=== PATIENT | male | born 1945 | race Caucasian/White ===

== ENCOUNTER 2024-04-26 17:37 | Inpatient (IN) ==
--- NOTE | 2024-04-26 18:45 | DR.DIZZY ---
HPI Time seen Time Seen by Provider: 04/26/24 18:44 PCP Primary Care Physician: Ivette Al HPI Comment HPI Comment: Patient's family states that his family has had flu for the past few weeks and today he woke up feeling a little weak with some upper respiratory type symptoms. Denies fever chills, nausea or vomiting. Patient's family stated that he had 1 episode of diarrhea today and was unable to make it to the bathroom. Complaint Chief Complaint:: Pt states his family has all had the flu the past few weeks and today he woke up feeling weak. Denies fever, chills, n/v. PT family states that pt had a BM on himself earlier today and that's unusual for him. Source History Provided: Patient and EMS Mode of Arrival Mode of Arrival: EMS Timing Onset of Chief Complaint: 04/26/24 Context Stroke Symptoms: None PMH PMH Past Medical History: Yes Past Medical History: Depression and Hypertension Past Surgical History: No Surgical History: Unknown Family History History of Family Medical Conditions: No (unknown) Social History Alcohol Use: None Do you use any recreational Drugs:: No Lives With: Family Lives Where: Home Infectious screening Have you traveled outside the country in the last 6 months?: No Isolation: Droplet ROS Review of Systems Constitutional: See HPI and Weakness; negative Fever Eyes: No Symptoms Reported ENTM: See HPI and Nose Discharge Respiratoy: No Symptoms Reported; negative Short of Breath Cardiovascular: No Symptoms Reported; negative Chest Pain, Edema, Palpitations or Syncope Gastrointestinal/Abdominal: See HPI and Diarrhea; negative Abdominal Pain, Constipation, Nausea or Vomiting Genitourinary: No Symptoms Reported Neurological: No Symptoms Reported Musculoskeletal: No Symptoms Reported Integumentary: No Symptoms Reported Hematologic/Lymphatic: No Symptoms Reported Endocrine: No Symptoms Reported Psychiatric: No Symptoms Reported All Other Systems: Reviewed and Negative PE Vital Signs Vitals: Vital Signs Temperature 98.7 F Pulse Rate 68 Pulse Rate 71 Pulse Rate 78 Pulse Rate 72 Pulse Rate 68 Pulse Rate 75 Pulse Rate 75 Pulse Rate 70 Pulse Rate 75 Pulse Rate 82 Pulse Rate 80 Pulse Rate 87 Pulse Rate 79 Pulse Rate 81 Respiratory Rate 21 Respiratory Rate 22 Respiratory Rate 22 Respiratory Rate 23 Respiratory Rate 20 Respiratory Rate 21 Respiratory Rate 21 Respiratory Rate 25 Respiratory Rate 18 Respiratory Rate 18 Blood Pressure 158/64 Blood Pressure 180/83 Blood Pressure 173/77 Blood Pressure 161/77 Blood Pressure 161/77 Blood Pressure 116/60 Blood Pressure 119/67 Blood Pressure 125/59 Blood Pressure 125/59 O2 Sat by Pulse Oximetry 95 O2 Sat by Pulse Oximetry 95 O2 Sat by Pulse Oximetry 98 O2 Sat by Pulse Oximetry 96 O2 Sat by Pulse Oximetry 97 O2 Sat by Pulse Oximetry 95 O2 Sat by Pulse Oximetry 94 O2 Sat by Pulse Oximetry 97 O2 Sat by Pulse Oximetry 99 O2 Sat by Pulse Oximetry 97 O2 Sat by Pulse Oximetry 97 O2 Sat by Pulse Oximetry 98 O2 Sat by Pulse Oximetry 95 O2 Sat by Pulse Oximetry 99 O2 Sat by Pulse Oximetry 97 General Limitations: No Limitations General Appearance: Alert (Pleasantly demented) and In No Apparent Distress Head Head Exam: Normal Inspection Eyes Eye exam: Normal Appearance ENT ENT Exam: Normal Exam, Normal Oropharynx and Normal External Ear Exam Neck Neck Exam: Normal Inspection and Full ROM Chest Chest Inspection: Normal Inspection Respiratory Respiratory Exam: Normal Lung Sounds Bilat Cardiovascular Cardiovascular Exam: Regular Rate and Normal Rhythm Abdominal Exam Abdominal Exam: Normal Inspection, Normal Bowel Sounds and Soft Rectal Rectal Exam: Deferred Extremeties Extremities Exam: Normal Inspection and Full ROM Back Back Exam: Normal Inspection and Full ROM Neurologic Neurological Exam: Alert, CN II-XII Intact, Reflexes Normal and Other (No focal deficits); negative Motor Sensory Deficit Psychiatric Psychiatric Exam: Normal Affect and Normal Mood Skin Skin Exam: Warm, Dry, Intact and Normal Color COURSE Treatment Treatment: Patient swabs came back negative. On discussion with patient and fam gisselle member she states that he has actually been weak for a month and that he became weaker since yesterday. That he is having a difficulty getting around. Denies focal deficits. States that he has baseline dementia but that this is a change in his mental status. CT abdomen shows a distended urinary bladder likely secondary to bladder outlet obstruction secondary to benign prostatic hyperplasia. Patient has UTI on UA which is likely source of elevated white count. This is likely the source of the altered mental status worsening dementia status. Consultation Called: 23:02 Consultation Comments: Discussed case with Dr. Alonso and he is agreeable to admission. ROR Labs Reviewed 04/26/24 19:12 04/26/24 19:12 Laboratory: WBC 26.3 X10^3/uL (3.6-10.0) H 04/26/24 19:12 RBC 4.15 X10^6/uL (4.7-6.0) L 04/26/24 19:12 Hgb 13.3 g/dL (13.5-18.0) L 04/26/24 19:12 Hct 38.8 % (42.0-54.0) L 04/26/24 19:12 MCV 93.4 fL (80.0-100.0) 04/26/24 19:12 MCH 32.0 pg (27.0-34.0) 04/26/24 19:12 MCHC 34.3 g/dL (33.0-35.0) 04/26/24 19:12 RDW 13.4 % (11.6-16.5) 04/26/24 19:12 Plt Count 110 X10^3/uL (150.0-450.0) L 04/26/24 19:12 Plt Count Comment Decreased (ADEQUATE) 04/26/24 19:12 MPV 10.7 fL (7.4-11.0) 04/26/24 19:12 Neut % (Auto) 90.8 % (42.0-75.0) H 04/26/24 19:12 Lymph % (Auto) 1.4 % (21.0-51.0) L 04/26/24 19:12 Ray % (Auto) 7.6 % (0.0-13.0) 04/26/24 19:12 Eos % (Auto) 0.0 % (0.9-2.9) L 04/26/24 19:12 Baso % (Auto) 0.2 % (0.2-1.0) 04/26/24 19:12 Neut # (Auto) 23.8 x10^3/uL (2.2-4.8) H 04/26/24 19:12 Lymph # (Auto) 0.4 X10^3/uL (1.3-2.9) L 04/26/24 19:12 Ray # (Auto) 2.0 x10^3/uL (0.3-0.8) H 04/26/24 19:12 Eos # (Auto) 0.0 x10^3/uL (0.0-0.2) 04/26/24 19:12 Baso # (Auto) 0.1 X10^3/uL (0.0-0.1) 04/26/24 19:12 Absolute Nucleated RBC 0.2 /100WBC 04/26/24 19:12 Total Counted 100 04/26/24 19:12 Neutrophils % (Manual) 91 % (39-76) H 04/26/24 19:12 Band Neutrophils % 4 % (0-10) 04/26/24 19:12 Lymphocytes % (Manual) 2 % (13-43) L 04/26/24 19:12 Monocytes % (Manual) 3 % (4-9) L 04/26/24 19:12 Plt Morphology Comment Normal (NORMAL) 04/26/24 19:12 RBC Morphology Normal (NORMAL) 04/26/24 19:12 Sodium 137 mmol/L (136-145) 04/26/24 19:12 Corrected Sodium 143 mmol/L (136-145) 04/26/24 19:12 Potassium 4.4 mmol/L (3.5-5.1) 04/26/24 19:12 Chloride 100 mmol/L (98-107) 04/26/24 19:12 Carbon Dioxide 26.4 mmol/L (21-32) 04/26/24 19:12 BUN 37 mg/dL (7-18) H 04/26/24 19:12 Creatinine 1.73 mg/dL (0.70-1.30) H 04/26/24 19:12 Est GFR (MDRD) Af Amer 49 (>60) L 04/26/24 19:12 Est GFR (MDRD) Non-Af 41 (>60) L 04/26/24 19:12 Glucose 347 mg/dL (65-99) H 04/26/24 19:12 Calcium 8.7 mg/dL (8.5-10.1) 04/26/24 19:12 Corrected Calcium 9.3 mg/dL (8.5-10.1) 04/26/24 19:12 Total Bilirubin 1.40 mg/dL (0.2-1.0) H 04/26/24 19:12 AST 39 Units/L (15-37) H 04/26/24 19:12 ALT 36 Units/L (12-78) 04/26/24 19:12 Alkaline Phosphatase 88 Units/L (46-116) 04/26/24 19:12 Total Protein 6.4 g/dL (6.4-8.2) 04/26/24 19:12 Albumin 3.2 g/dL (3.4-5.0) L 04/26/24 19:12 Globulin 3.2 g/dL (2.5-4.5) 04/26/24 19:12 Albumin/Globulin Ratio 1.0 Ratio (1.1-2.1) L 04/26/24 19:12 Specimen Type Catherized urine 04/26/24 21:54 Urine Color Pale yellow (YELLOW) 04/26/24 21:54 Urine Appearance Cloudy (CLEAR) 04/26/24 21:54 Urine pH 5.0 (5.0 - 8.0) 04/26/24 21:54 Ur Specific [place] 1.015 (1.000-1.030) 04/26/24 21:54 Urine Protein 2+ (NEGATIVE) 04/26/24 21:54 Urine Glucose (UA) 4+ (NEGATIVE) 04/26/24 21:54 Urine Ketones 1+ (NEGATIVE) 04/26/24 21:54 Urine Blood 4+ (NEGATIVE) 04/26/24 21:54 Urine Nitrite Positive (NEGATIVE) 04/26/24 21:54 Urine Bilirubin Negative (NEGATIVE) 04/26/24 21:54 Urine Urobilinogen Normal (NORMAL) 04/26/24 21:54 Ur Leukocyte Esterase 3+ (NEGATIVE) 04/26/24 21:54 Urine RBC 5-10 /HPF (0-3) A 04/26/24 21:54 Urine WBC Tntc /HPF (0-5) A 04/26/24 21:54 Ur Squamous Epith Cells Rare /HPF (NEGATIVE) 04/26/24 21:54 Urine Bacteria 3+ /HPF (NEGATIVE) 04/26/24 21:54 Ur Culture Indicated? Yes/culture set up 04/26/24 21:54 SARS-CoV-2 (PCR) Negative (NEGATIVE) 04/26/24 17:50 Influenza Type A (PCR) Negative (NEGATIVE) 04/26/24 17:50 Influenza Type B (PCR) Negative (NEGATIVE) 04/26/24 17:50 RSV (PCR) Negative (NEGATIVE) 04/26/24 17:50 Opioid Opioid Risk Tool Total: 0 Total Score Risk Category: Low Risk Copyright: Jordy WONG predicting aberrant behaviors Discharge Plan Diagnosis Discharge Problem: Acute UTI, AMS (altered mental status), BPH with urinary obstruction, Dementia, HTN (hypertension), HLD (hyperlipidemia), Diabetes mellitus Discharge Plan Patient Disposition: 09 ADMITTED INPATIENT Condition: Stable Prescriptions: No Action atorvastatin 80 mg Tablet 80 mg PO DAILY donepezil 10 mg Tablet 10 mg PO QHS aspirin [Aspir-81] 81 mg Tablet,Delayed Release (Dr/Ec) 81 mg PO DAILY levothyroxine 100 mcg Tablet 100 mcg PO DAILY tamsulosin 0.4 mg Capsule 0.4 mg PO DAILY montelukast 10 mg Tablet 10 mg PO DAILY gabapentin 300 mg Tablet 300 mg PO BID Health Concerns: Post Hospitalization: new medications and changes needed to prevent readmission or further decline. Pt educated and given instructions on all concerns. Plan of Treatment: Continue with present treatment and follow up plan. Pt is to keep follow up appointment as instructed and take medications as ordered. Orders to Discharge Patient Discharge Orders: Transfer (Routine); Ordered 04/26/24 Ordered By: Marino Carson Follow ups/Referrals Follow ups/Referrals: ALYSON AL [Primary Care Provider] - 3 days Instructions Stand Alone Forms: Find Help Web Site, Post Hospital Follow Up Care
[2024-04-26 19:22] LABS: RED CELL DISTRIBUTION WIDTH 13.4 % (11.6-16.5)
[2024-04-26 19:26] LABS: BASOPHILS # (AUTO) 0.1 X10^3/uL (0.0-0.1); BASOPHILS % (AUTO) 0.2 % (0.2-1.0); HEMATOCRIT 38.8 % (42.0-54.0); HEMOGLOBIN 13.3 g/dL (13.5-18.0); LYMPHOCYTES # (AUTO) 0.4 X10^3/uL (1.3-2.9); LYMPHOCYTES % (AUTO) 1.4 % (21.0-51.0); MEAN CORPUSCULAR HGB CONC 34.3 g/dL (33.0-35.0); MEAN CORPUSCULAR VOLUME 93.4 fL (80.0-100.0); MEAN PLATELET VOLUME 10.7 fL (7.4-11.0); MONOCYTES % (AUTO) 7.6 % (0.0-13.0); NEUTROPHILS # (AUTO) 23.8 x10^3/uL (2.2-4.8); NEUTROPHILS % (AUTO) 90.8 % (42.0-75.0); PLATELET COUNT 110 X10^3/uL (150.0-450.0); RED BLOOD COUNT 4.15 X10^6/uL (4.7-6.0); WHITE BLOOD COUNT 26.3 X10^3/uL (3.6-10.0)
[2024-04-26 19:35] LABS: ALBUMIN 3.2 g/dL (3.4-5.0); CALCIUM 8.7 mg/dL (8.5-10.1); CARBON DIOXIDE 26.4 mmol/L (21-32); COR CA(FOR HYPOALB) 9.3 mg/dL (8.5-10.1); CREATININE 1.73 mg/dL (0.70-1.30); POTASSIUM 4.4 mmol/L (3.5-5.1); TOTAL PROTEIN 6.4 g/dL (6.4-8.2)
[2024-04-26 19:50] LABS: BAND NEUTROPHILS % 4 % (0-10); PLATELET MORPHOLOGY COMMENT NORMAL (NORMAL)
[2024-04-26] MEDS: ATIVAN INJ 2 MG VIAL IVP ONE ×2 (20:29→22:05)
--- NOTE | 2024-04-26 22:02 | CT ---
EXAM:BRAIN W/O CONHISTORY:Pt states his family has all had the flu the past few weeks and today he woke up feeling weak. ;COMPARISON:Report only from an MRI brain study on December 19, [address] head without contrast from June 16, 2022.TECHNIQUE:Axial non-contrast images of the head were obtained with coronal and sagittal reformats provided.Radiation dose: 959.64 mGy-cm total DLPFINDINGS:No abnormal areas of acute attenuation in the brain parenchyma.Emanuel-white differentiation remains intact.No intracranial, extra-axial, fluid collection.No hemorrhage.Periventricular chronic microvascular disease.No mass, mass effect or midline shift.Age related brain parenchymal global atrophy.No ventriculomegaly.No acute fracture.Sinuses are well aerated.Mastoid air cells are well aerated.Globes and intra-orbital contents are unremarkable.IMPRESSION:No acute intracranial abnormality identified.THIS IS AN ELECTRONICALLY VERIFIED FINAL REPORT04/26/2024 9:59 PM - Electronically signed by Rohan Morgan MD
--- NOTE | 2024-04-26 22:05 | CT ---
EXAM:ABDOMEN/PELVIS W/O CONHISTORY:Diarrhea, Abd pain;COMPARISON:None.TECHNIQUE:Nonenhanc ed spiral CT imaging was performed through the abdomen and pelvis and axial, coronal, and sagittal CT images were generated.FINDINGS:There is mild dependent atelectasis without effusion. The heart size is within normal limits. There is multivessel coronary atherosclerosis. The liver, gallbladder are normal. Pancreas is atrophic. The spleen and adrenal glands are normal. Both kidneys are normal in size. There is a 3 mm nonobstructing stone in the left kidney. There is no stone in the right kidney. There is dilation of both ureters likely due to the extremely dilated urinary bladder. The stomach and small bowel are unremarkable. There is no evidence for appendicitis. There is stool throughout the colon and constipation may be present. There is uyxntlis-cx-pyfgsd systemic atherosclerosis. There is degeneration of the spine and in the hips there is no worrisome bone marrow lesion.IMPRESSION:1. Massively distended urinary bladder likely due to outlet obstruction.2. Small nonobstructing stone in the left kidney. No ureteral stone.3. Question constipation.THIS IS AN ELECTRONICALLY VERIFIED FINAL REPORT04/26/2024 10:01 PM - Electronically signed by Sunny Renee MD
[2024-04-26 22:18] LABS: BILIRUBIN,URINE NEGATIVE (NEGATIVE); BLOOD/HEMOGLOBIN,URINE 4+ (NEGATIVE); GLUCOSE, URINE 4+ (NEGATIVE); KETONES,URINE 1+ (NEGATIVE); LEUKOCYTE ESTERASE ,URINE 3+ (NEGATIVE); NITRITES,URINE POSITIVE (NEGATIVE); PROTEIN,URINE 2+ (NEGATIVE); UROBILINOGEN,URINE NORMAL (NORMAL)
[2024-04-26 22:27] LABS: APPEARANCE,URINE CLOUDY (CLEAR); BACTERIA,URINE 3+ /HPF (NEGATIVE); COLOR,URINE PALE YELLOW (YELLOW); SQUAMOUS EPITHELIAL CELL,UR RARE /HPF (NEGATIVE)
[2024-04-26] MEDS ORDERED: NS 1,000 ML IV 1,000 ML ONE (23:03)
[2024-04-26] MEDS: NS 1,000 ML IV 1,000 ML IV SCH (23:10)
[2024-04-26] MEDS: CIPRO IV 400 MG PREMIX* 400 MG/200 ML IV.SOLN. IV SCH (23:10)
[2024-04-27] MEDS ORDERED: CONSULT PHARMACY - POTASSIUM & MAGNESIUM XX SCH (00:06)
[2024-04-27 00:26] VITALS: BMI 24.0
[2024-04-27] MEDS: FLOMAX PO SCH (00:47)
[2024-04-27] MEDS: NS 1,000 ML IV 1,000 ML IV SCH (00:47)
[2024-04-27] MEDS ORDERED: ULTRAM PO PRN (01:51)
[2024-04-27] MEDS: VALIUM INJ IVP PRN (02:06)
[2024-04-27 04:58] LABS: BASOPHILS % (AUTO) 0.1 % (0.2-1.0); HEMATOCRIT 37.4 % (42.0-54.0); HEMOGLOBIN 12.7 g/dL (13.5-18.0); LYMPHOCYTES # (AUTO) 0.8 X10^3/uL (1.3-2.9); LYMPHOCYTES % (AUTO) 3.3 % (21.0-51.0); MEAN CORPUSCULAR HEMOGLOBIN 31.6 pg (27.0-34.0); MEAN CORPUSCULAR HGB CONC 33.9 g/dL (33.0-35.0); MEAN CORPUSCULAR VOLUME 93.2 fL (80.0-100.0); MEAN PLATELET VOLUME 11.5 fL (7.4-11.0); MONOCYTES # (AUTO) 2.3 x10^3/uL (0.3-0.8); MONOCYTES % (AUTO) 9.4 % (0.0-13.0); NEUTROPHILS # (AUTO) 21.4 x10^3/uL (2.2-4.8); NEUTROPHILS % (AUTO) 87.2 % (42.0-75.0); PLATELET COUNT 114 X10^3/uL (150.0-450.0); RED BLOOD COUNT 4.01 X10^6/uL (4.7-6.0); RED CELL DISTRIBUTION WIDTH 13.4 % (11.6-16.5); WHITE BLOOD COUNT 24.6 X10^3/uL (3.6-10.0)
[2024-04-27 05:19] LABS: BAND NEUTROPHILS % 8 % (0-10); PLATELET MORPHOLOGY COMMENT NORMAL (NORMAL)
[2024-04-27 05:25] LABS: ALBUMIN 3.2 g/dL (3.4-5.0); CALCIUM 8.6 mg/dL (8.5-10.1); COR CA(FOR HYPOALB) 9.2 mg/dL (8.5-10.1); CREATININE 1.52 mg/dL (0.70-1.30); POTASSIUM 4.3 mmol/L (3.5-5.1); TOTAL PROTEIN 6.3 g/dL (6.4-8.2)
[2024-04-27] MEDS: ATIVAN INJ 2 MG VIAL ONE (07:05)
[2024-04-27] MEDS ORDERED: FLOMAX PO SCH (09:00)
[2024-04-27] MEDS ORDERED: CIPRO IV 400 MG PREMIX* 400 MG/200 ML IV.SOLN. IV SCH (09:00)
--- NOTE | 2024-04-27 09:41 | RAD ---
EXAM:Portable AP chestHISTORY:AMS WBCCOMPARISON:06/16/2022FINDINGS:Heart size continues normal. There is slight interstitial prominence in the lungs probably related to incomplete inspiration. There is no definite consolidation, pneumonia, pneumothorax or pleural fluid.IMPRESSION:Considering mild pulmonary hypoinflation, no significant abnormality.THIS IS AN ELECTRONICALLY VERIFIED FINAL REPORT04/27/2024 9:37 AM - Electronically signed by Dhaval Hooker MD
[2024-04-27] MEDS: ASPIRIN EC 81 MG PO SCH (13:36)
[2024-04-27] MEDS ORDERED: TYLENOL 325 MG TAB PO PRN (14:20)
--- NOTE | 2024-04-27 15:15 | DR.H&P ---
H&P History & Physical for Day of: H&P Date: 04/27/24 Chief Complaint Chief Complaint: weakness History of Present Illness History of Present Illness: Patient brought to the ER by family due to worsening mental status, fatigue, and function. Patient had been dealing with "the flu" for the last couple of weeks when he acutely worsened over the last 48 hours. In the ER he was found to have bladder outlet obstruction, likely secondary to BPH, with ELIZABETH and leukocytosis. Flowers was placed and IV fluids and IV antibiotics started. Patient has some improvement to his vitals and labs with those interventions. Family reports his mental status is still very confused but he does have baseline dementia. This does not appear to be his baseline though. He has not seen urology in the past but has been taking Flomax. He did report some pelvic discomfort with sitting down the last couple of weeks. ROS: 12 point ROS otherwise negative. Family and nurse at bedside for exam. PE: Elderly, thin male in no acute distress. Hearing intact conversation. Head NCAT. Neck full range of motion. Heart regular rate and rhythm. Lungs are clear bilaterally. Belly is soft, nontender, nondistended. Flowers with dark output. Cognition is slowed and abnormal. Past Medical History Past Medical History: Depression and Hypertension Past Surgical History Surgical History: Unknown Family History Family Medical History: Diabetes Mellitus, Sudden Cardiac and Hypertension Social History Does patient currently use any type of tobacco product: Yes Type of Tobacco Use: Smokeless Does any household member use tobacco: No Alcohol Use: None Drug Use: None Medications Home Medications: Home Medications Medication Instructions Recorded Confirmed Type aspirin 81 mg tablet,delayed 81 mg PO DAILY 04/26/24 04/26/24 History release atorvastatin 80 mg tablet 80 mg PO DAILY 04/26/24 04/26/24 History donepezil 10 mg tablet 10 mg PO QHS 04/26/24 04/26/24 History gabapentin 300 mg tablet 300 mg PO BID 04/26/24 04/26/24 History levothyroxine 100 mcg tablet 100 mcg PO DAILY 04/26/24 04/26/24 History montelukast 10 mg tablet 10 mg PO DAILY 04/26/24 04/26/24 History tamsulosin 0.4 mg capsule 0.4 mg PO DAILY 04/26/24 04/26/24 History Allergies Allergies Allergy/AdvReac Type Severity Reaction Status Date / Time No Known Allergies Allergy Verified 04/26/24 17:46 Labs 04/27/24 04:02 04/27/24 04:02 Labs: Laboratory WBC 24.6 X10^3/uL (3.6-10.0) H 04/27/24 04:02 RBC 4.01 X10^6/uL (4.7-6.0) L 04/27/24 04:02 Hgb 12.7 g/dL (13.5-18.0) L 04/27/24 04:02 Hct 37.4 % (42.0-54.0) L 04/27/24 04:02 MCV 93.2 fL (80.0-100.0) 04/27/24 04:02 MCH 31.6 pg (27.0-34.0) 04/27/24 04:02 MCHC 33.9 g/dL (33.0-35.0) 04/27/24 04:02 RDW 13.4 % (11.6-16.5) 04/27/24 04:02 Plt Count 114 X10^3/uL (150.0-450.0) L 04/27/24 04:02 Plt Count Comment Decreased (ADEQUATE) 04/27/24 04:02 MPV 11.5 fL (7.4-11.0) H 04/27/24 04:02 Neut % (Auto) 87.2 % (42.0-75.0) H 04/27/24 04:02 Lymph % (Auto) 3.3 % (21.0-51.0) L 04/27/24 04:02 [place] % (Auto) 9.4 % (0.0-13.0) 04/27/24 04:02 Eos % (Auto) 0.0 % (0.9-2.9) L 04/27/24 04:02 Baso % (Auto) 0.1 % (0.2-1.0) L 04/27/24 04:02 Neut # (Auto) 21.4 x10^3/uL (2.2-4.8) H 04/27/24 04:02 Lymph # (Auto) 0.8 X10^3/uL (1.3-2.9) L 04/27/24 04:02 [place] # (Auto) 2.3 x10^3/uL (0.3-0.8) H 04/27/24 04:02 Eos # (Auto) 0.0 x10^3/uL (0.0-0.2) 04/27/24 04:02 Baso # (Auto) 0.0 X10^3/uL (0.0-0.1) 04/27/24 04:02 Absolute Nucleated RBC 0.0 /100WBC 04/27/24 04:02 Total Counted 100 04/27/24 04:02 Neutrophils % (Manual) 81 % (39-76) H 04/27/24 04:02 Band Neutrophils % 8 % (0-10) 04/27/24 04:02 Lymphocytes % (Manual) 4 % (13-43) L 04/27/24 04:02 Monocytes % (Manual) 7 % (4-9) 04/27/24 04:02 Plt Morphology Comment Normal (NORMAL) 04/27/24 04:02 RBC Morphology Normal (NORMAL) 04/27/24 04:02 Sodium 141 mmol/L (136-145) 04/27/24 04:02 Corrected Sodium 145 mmol/L (136-145) 04/27/24 04:02 Potassium 4.3 mmol/L (3.5-5.1) 04/27/24 04:02 Chloride 103 mmol/L (98-107) 04/27/24 04:02 Carbon Dioxide 29.0 mmol/L (21-32) 04/27/24 04:02 BUN 40 mg/dL (7-18) H 04/27/24 04:02 Creatinine 1.52 mg/dL (0.70-1.30) H 04/27/24 04:02 Est GFR (MDRD) Af Amer 57 (>60) L 04/27/24 04:02 Est GFR (MDRD) Non-Af 47 (>60) L 04/27/24 04:02 Glucose 261 mg/dL (65-99) H 04/27/24 04:02 POC Glucose (mg/dL) 200 mg/dL (65-99) H 04/27/24 10:33 Calcium 8.6 mg/dL (8.5-10.1) 04/27/24 04:02 Corrected Calcium 9.2 mg/dL (8.5-10.1) 04/27/24 04:02 Total Bilirubin 1.40 mg/dL (0.2-1.0) H 04/27/24 04:02 AST 38 Units/L (15-37) H 04/27/24 04:02 ALT 33 Units/L (12-78) 04/27/24 04:02 Alkaline Phosphatase 84 Units/L (46-116) 04/27/24 04:02 Total Protein 6.3 g/dL (6.4-8.2) L 04/27/24 04:02 Albumin 3.2 g/dL (3.4-5.0) L 04/27/24 04:02 Globulin 3.1 g/dL (2.5-4.5) 04/27/24 04:02 Albumin/Globulin Ratio 1.0 Ratio (1.1-2.1) L 04/27/24 04:02 Specimen Type Catherized urine 04/26/24 21:54 Urine Color Pale yellow (YELLOW) 04/26/24 21:54 Urine Appearance Cloudy (CLEAR) 04/26/24 21:54 Urine pH 5.0 (5.0 - 8.0) 04/26/24 21:54 Ur Specific [place] 1.015 (1.000-1.030) 04/26/24 21:54 Urine Protein 2+ (NEGATIVE) 04/26/24 21:54 Urine Glucose (UA) 4+ (NEGATIVE) 04/26/24 21:54 Urine Ketones 1+ (NEGATIVE) 04/26/24 21:54 Urine Blood 4+ (NEGATIVE) 04/26/24 21:54 Urine Nitrite Positive (NEGATIVE) 04/26/24 21:54 Urine Bilirubin Negative (NEGATIVE) 04/26/24 21:54 Urine Urobilinogen Normal (NORMAL) 04/26/24 21:54 Ur Leukocyte Esterase 3+ (NEGATIVE) 04/26/24 21:54 Urine RBC 5-10 /HPF (0-3) A 04/26/24 21:54 Urine WBC Tntc /HPF (0-5) A 04/26/24 21:54 Ur Squamous Epith Cells Rare /HPF (NEGATIVE) 04/26/24 21:54 Urine Bacteria 3+ /HPF (NEGATIVE) 04/26/24 21:54 Ur Culture Indicated? Yes/culture set up 04/26/24 21:54 Stl Occult Blood (IFOB) Negative (NEGATIVE) 04/27/24 10:35 SARS-CoV-2 (PCR) Negative (NEGATIVE) 04/26/24 17:50 Influenza Type A (PCR) Negative (NEGATIVE) 04/26/24 17:50 Influenza Type B (PCR) Negative (NEGATIVE) 04/26/24 17:50 RSV (PCR) Negative (NEGATIVE) 04/26/24 17:50 Physical Exam Vital Signs: Vital Signs Temperature 98.4 F Temperature 98.4 F Pulse Rate [Left Brachial] 75 Pulse Rate [Left Brachial] 65 Respiratory Rate 18 Respiratory Rate 18 Blood Pressure [Left Arm] 143/65 Blood Pressure [Left Arm] 142/65 O2 Sat by Pulse Oximetry 95 O2 Sat by Pulse Oximetry 95 Assessment/Plan (1) Sepsis: Qualifiers: Sepsis type: sepsis due to unspecified organism Sepsis acute organ dysfunction status: with acute organ dysfunction Severe sepsis acute organ dysfunction type: acute renal failure Acute renal failure type: with acute tubular necrosis Severe sepsis shock status: without septic shock Qualified Code(s): A41.9 - Sepsis, unspecified organism; R65.20 - Severe sepsis without septic shock; N17.0 - Acute kidney failure with tubular necrosis Narrative Support Text: Leukocytosis, tachypnea, UTI. Cultures pending. Continue IV antibiotics Status: Acute (2) BPH with urinary obstruction: Narrative Support Text: Continue Flowers. Will need to be discharged on it with follow-up with urology. Continue Flomax Status: Acute (3) Dementia: Qualifiers: Dementia type: Alzheimer's Alzheimer's disease onset: late onset Dementia severity: moderate Dementia behavioral or psychological symptom: without behavioral, psychotic, or mood disturbance or anxiety Qualified Code(s): G30.1 - Alzheimer's disease with late onset; F02.B0 - Dementia in other diseases classified elsewhere, moderate, without behavioral disturbance, psychotic disturbance, mood disturbance, and anxiety Narrative Support Text: Resume home medication. Recommend neurology follow-up but at this point not sure how that would help. Likely had acute delirium due to UTI and urinary obstruction on top of his dementia. Continue IV fluids and Flowers care Status: Acute (4) Type 2 diabetes mellitus with hyperglycemia: Qualifiers: Diabetes mellitus senior care insulin use: without rn long term care use Qualified Code(s): E11.65 - Type 2 diabetes mellitus with hyperglycemia Narrative Support Text: Permissive hyperglycemia while ill. Cover with sliding scale. Status: Acute
[2024-04-27] MEDS: SINGULAIR TAB 10 MG PO SCH (21:02)
[2024-04-27] MEDS: NEURONTIN CAP 300 MG PO SCH (21:03)
[2024-04-27] MEDS: LIPITOR TAB 80 MG PO SCH (21:03)
[2024-04-27] MEDS: ARICEPT TAB 10 MG PO SCH (21:03)
[2024-04-27] MEDS: NovoLIN R (or HumuLIN R) SUBCUT PRN (23:02)
[2024-04-28] MEDS: SNACK - Diabetic Appropriate PO SCH (01:37)
[2024-04-28 04:49] LABS: ALANINE AMINOTRANSFERASE 33 Units/L (12-78); ALBUMIN 2.6 g/dL (3.4-5.0); ALKALINE PHOSPHATASE 66 Units/L (46-116); ASPARTATE AMINO TRANSFERASE 51 Units/L (15-37); BLOOD UREA NITROGEN 28 mg/dL (7-18); CALCIUM 8.2 mg/dL (8.5-10.1); CARBON DIOXIDE 28.3 mmol/L (21-32); CHLORIDE 108 mmol/L (98-107); COR CA(FOR HYPOALB) 9.3 mg/dL (8.5-10.1); CREATININE 1.19 mg/dL (0.70-1.30); GLUCOSE 77 mg/dL (65-99); POTASSIUM 3.5 mmol/L (3.5-5.1); SODIUM 143 mmol/L (136-145); TOTAL PROTEIN 5.4 g/dL (6.4-8.2); eGFR NON BLACK RACES > 60 (>60)
[2024-04-28 04:57] LABS: BASOPHILS # (AUTO) 0.1 X10^3/uL (0.0-0.1); EOSINOPHILS # (AUTO) 0.2 x10^3/uL (0.0-0.2); EOSINOPHILS % (AUTO) 1.4 % (0.9-2.9); HEMOGLOBIN 11.8 g/dL (13.5-18.0); MONOCYTES # (AUTO) 1.9 x10^3/uL (0.3-0.8)
[2024-04-28 05:02] LABS: BASOPHILS % (AUTO) 0.5 % (0.2-1.0); HEMATOCRIT 33.5 % (42.0-54.0); LYMPHOCYTES # (AUTO) 1.6 X10^3/uL (1.3-2.9); LYMPHOCYTES % (AUTO) 11.1 % (21.0-51.0); MEAN CORPUSCULAR HEMOGLOBIN 32.5 pg (27.0-34.0); MEAN CORPUSCULAR HGB CONC 35.3 g/dL (33.0-35.0); MEAN CORPUSCULAR VOLUME 92.2 fL (80.0-100.0); MEAN PLATELET VOLUME 11.3 fL (7.4-11.0); MONOCYTES % (AUTO) 12.8 % (0.0-13.0); NEUTROPHILS # (AUTO) 10.7 x10^3/uL (2.2-4.8); NEUTROPHILS % (AUTO) 74.2 % (42.0-75.0); PLATELET COUNT 101 X10^3/uL (150.0-450.0); RED BLOOD COUNT 3.64 X10^6/uL (4.7-6.0); RED CELL DISTRIBUTION WIDTH 13.2 % (11.6-16.5)
[2024-04-28 05:24] LABS: PLATELET MORPHOLOGY COMMENT NORMAL (NORMAL); WHITE BLOOD COUNT 14.4 X10^3/uL (3.6-10.0)
[2024-04-28] MEDS: SYNTHROID 100 mcg TAB PO SCH (05:44)
[2024-04-28] MEDS ORDERED: PHARMACY CONSULT - LOVENOX XX SCH (08:00)
[2024-04-28] MEDS ORDERED: CONSULT PHARMACY - POTASSIUM & MAGNESIUM XX SCH ×2 (08:00→09:00)
[2024-04-28] MEDS: NS 1,000 ML IV 1,000 ML with MAGNESIUM SULFATE 50% INJ VIAL 1 G IV SCH (08:15)
[2024-04-28] MEDS: NORVASC TAB 5 MG PO SCH (08:49)
[2024-04-28] MEDS: K-DUR TAB 20 MEQ PO SCH (08:49)
[2024-04-28] MEDS: LOVENOX INJ 30 MG SYR SC SCH (08:50)
--- NOTE | 2024-04-28 15:37 | NOTE.SOAP ---
Soap Note Note for Day of Date of Exam: 04/28/24 Subjective Data Subjective Data: No overnight events. Blood pressure increasing. Patient able to eat breakfast today. Urine color clearing. WBCs and SCR improved. Objective Data Objective Data: Thin, elderly male in no acute distress. Hearing intact conversation. Head NCAT. Heart regular rate and rhythm. Lungs diminished but clear. Cognition slightly improved but still with delays and deficits. Assessment Assessment: 1. Severe sepsis due to UTI from urinary obstruction. Continue IV antibiotics. Continue IV fluids. Tachycardia, leukocytosis, UTI, ELIZABETH. 2. Obstructive uropathy with ELIZABETH. Improving. Continue Flowers care. Needs outpatient urology referral. 3. Acute delirium in the setting of dementia. Some improvement today. Likely will need to go to rehab versus long-term care Plan Plan: stable for discharge medically. DERRICK placement pending.
[2024-04-29 05:55] LABS: BASOPHILS % (AUTO) 0.4 % (0.2-1.0); EOSINOPHILS # (AUTO) 0.2 x10^3/uL (0.0-0.2); LYMPHOCYTES # (AUTO) 1.5 X10^3/uL (1.3-2.9); LYMPHOCYTES % (AUTO) 14.2 % (21.0-51.0); MEAN CORPUSCULAR HEMOGLOBIN 32.6 pg (27.0-34.0); MEAN CORPUSCULAR HGB CONC 35.3 g/dL (33.0-35.0); MEAN CORPUSCULAR VOLUME 92.3 fL (80.0-100.0); MEAN PLATELET VOLUME 11.4 fL (7.4-11.0); MONOCYTES # (AUTO) 1.3 x10^3/uL (0.3-0.8); MONOCYTES % (AUTO) 12.2 % (0.0-13.0); NEUTROPHILS # (AUTO) 7.4 x10^3/uL (2.2-4.8); NEUTROPHILS % (AUTO) 71.2 % (42.0-75.0); PLATELET COUNT 108 X10^3/uL (150.0-450.0); RED BLOOD COUNT 3.69 X10^6/uL (4.7-6.0); RED CELL DISTRIBUTION WIDTH 13.3 % (11.6-16.5); WHITE BLOOD COUNT 10.4 X10^3/uL (3.6-10.0)
[2024-04-29 06:08] LABS: ALANINE AMINOTRANSFERASE 37 Units/L (12-78); ALBUMIN 2.6 g/dL (3.4-5.0); ALKALINE PHOSPHATASE 76 Units/L (46-116); ASPARTATE AMINO TRANSFERASE 52 Units/L (15-37); BLOOD UREA NITROGEN 16 mg/dL (7-18); CALCIUM 7.9 mg/dL (8.5-10.1); CARBON DIOXIDE 27.7 mmol/L (21-32); CHLORIDE 107 mmol/L (98-107); COR NA(FOR HYPERGLY) 144 mmol/L (136-145); CREATININE 1.22 mg/dL (0.70-1.30); GLUCOSE 178 mg/dL (65-99); MAGNESIUM 1.8 mg/dL (2.0-2.9); POTASSIUM 3.4 mmol/L (3.5-5.1); SODIUM 142 mmol/L (136-145); TOTAL PROTEIN 5.3 g/dL (6.4-8.2); eGFR NON BLACK RACES > 60 (>60)
[2024-04-29 07:03] LABS: BAND NEUTROPHILS % 4 % (0-10); PLATELET MORPHOLOGY COMMENT NORMAL (NORMAL)
[2024-04-29 08:13] VITALS: RESP 18
[2024-04-29] MEDS ORDERED: CONSULT PHARMACY - POTASSIUM & MAGNESIUM XX SCH (09:00)
[2024-04-29] MEDS: LOVENOX INJ 40 MG SYR SC SCH (09:01)
[2024-04-29] MEDS: K-DUR TAB 20 MEQ PO SCH (09:01)
[2024-04-29] MEDS: MAG-OX TAB PO SCH (09:02)
[2024-04-29 12:11] VITALS: BP 116/64; PULSE 70; TEMP 98.8; O2SAT 97
--- NOTE | 2024-04-30 08:44 | PCM.DCPLAN ---
DISCHARGE SUMMARY Discharge Date Discharge Date: 04/29/24 Admission Diagnoses (1) Sepsis: Status: Acute (2) BPH with urinary obstruction: Status: Acute (3) Dementia: Status: Chronic (4) Type 2 diabetes mellitus with hyperglycemia: Status: Chronic Discharge Diagnoses Discharge Diagnosis: Same Discharge Medications Discharge Medications: Home Medication List aspirin 81 mg tablet,delayed release 81 mg PO DAILY 04/26/24 [History] atorvastatin 80 mg tablet 80 mg PO DAILY 04/26/24 [History] donepezil 10 mg tablet 10 mg PO QHS 04/26/24 [History] gabapentin 300 mg tablet 300 mg PO BID 04/26/24 [History] levothyroxine 100 mcg tablet 100 mcg PO DAILY 04/26/24 [History] montelukast 10 mg tablet 10 mg PO DAILY 04/26/24 [History] tamsulosin 0.4 mg capsule 0.4 mg PO DAILY 04/26/24 [History] acetaminophen 325 mg tablet (Tylenol) 650 mg PO Q6H PRN #30 tabs 04/29/24 [Rx] amlodipine 5 mg tablet (Norvasc) 5 mg PO BID #60 tabs 04/29/24 [Rx] ciprofloxacin HCl 500 mg tablet (Cipro) 500 mg PO Q12H #10 tabs 04/29/24 [Rx] insulin regular human 100 unit/mL injection solution (Humulin R Regular U-100 Insulin) 1 sliding scale dose subcut USEASDIRECTD #100 mL 04/29/24 [Rx] Prescriptions: acetaminophen [Tylenol] Miko Alonso amlodipine [Norvasc] Miko Alonso ciprofloxacin HCl [Cipro] Miko Alonso insulin regular human [Humulin R Regular U-100 Insuln] Miko Alonso Hospital Course Vital Signs: Vital Signs Temperature 98.8 F Temperature 98.1 F Pulse Rate [Left Brachial] 70 Pulse Rate [Left Brachial] 81 Respiratory Rate 18 Respiratory Rate 18 Blood Pressure [Left Arm] 116/64 Blood Pressure [Left Arm] 135/61 O2 Sat by Pulse Oximetry 97 O2 Sat by Pulse Oximetry 94 Latest Lab Results: Laboratory Last Values WBC 10.4 X10^3/uL (3.6-10.0) H 04/29/24 05:07 RBC 3.69 X10^6/uL (4.7-6.0) L 04/29/24 05:07 Hgb 12.0 g/dL (13.5-18.0) L 04/29/24 05:07 Hct 34.0 % (42.0-54.0) L 04/29/24 05:07 MCV 92.3 fL (80.0-100.0) 04/29/24 05:07 MCH 32.6 pg (27.0-34.0) 04/29/24 05:07 MCHC 35.3 g/dL (33.0-35.0) H 04/29/24 05:07 RDW 13.3 % (11.6-16.5) 04/29/24 05:07 Plt Count 108 X10^3/uL (150.0-450.0) L 04/29/24 05:07 Plt Count Comment Decreased (ADEQUATE) 04/29/24 05:07 MPV 11.4 fL (7.4-11.0) H 04/29/24 05:07 Neut % (Auto) 71.2 % (42.0-75.0) 04/29/24 05:07 Lymph % (Auto) 14.2 % (21.0-51.0) L 04/29/24 05:07 [place] % (Auto) 12.2 % (0.0-13.0) 04/29/24 05:07 Eos % (Auto) 2.0 % (0.9-2.9) 04/29/24 05:07 Baso % (Auto) 0.4 % (0.2-1.0) 04/29/24 05:07 Neut # (Auto) 7.4 x10^3/uL (2.2-4.8) H 04/29/24 05:07 Lymph # (Auto) 1.5 X10^3/uL (1.3-2.9) 04/29/24 05:07 [place] # (Auto) 1.3 x10^3/uL (0.3-0.8) H 04/29/24 05:07 Eos # (Auto) 0.2 x10^3/uL (0.0-0.2) 04/29/24 05:07 Baso # (Auto) 0.0 X10^3/uL (0.0-0.1) 04/29/24 05:07 Absolute Nucleated RBC 0.0 /100WBC 04/29/24 05:07 Total Counted 100 04/29/24 05:07 Neutrophils % (Manual) 69 % (39-76) 04/29/24 05:07 Band Neutrophils % 4 % (0-10) 04/29/24 05:07 Lymphocytes % (Manual) 13 % (13-43) 04/29/24 05:07 Monocytes % (Manual) 12 % (4-9) H 04/29/24 05:07 Eosinophils % (Manual) 2 % (0-6) 04/29/24 05:07 Plt Morphology Comment Normal (NORMAL) 04/29/24 05:07 RBC Morphology Normal (NORMAL) 04/29/24 05:07 Acanthocytes (Spur) Present 04/28/24 03:58 Sodium 142 mmol/L (136-145) 04/29/24 05:07 Corrected Sodium 144 mmol/L (136-145) 04/29/24 05:07 Potassium 3.4 mmol/L (3.5-5.1) L 04/29/24 05:07 Chloride 107 mmol/L (98-107) 04/29/24 05:07 Carbon Dioxide 27.7 mmol/L (21-32) 04/29/24 05:07 BUN 16 mg/dL (7-18) 04/29/24 05:07 Creatinine 1.22 mg/dL (0.70-1.30) 04/29/24 05:07 Est GFR (MDRD) Af Amer > 60 (>60) 04/29/24 05:07 Est GFR (MDRD) Non-Af > 60 (>60) 04/29/24 05:07 Glucose 178 mg/dL (65-99) H 04/29/24 05:07 POC Glucose (mg/dL) 218 mg/dL (65-99) H 04/29/24 11:11 Calcium 7.9 mg/dL (8.5-10.1) L 04/29/24 05:07 Corrected Calcium 9.0 mg/dL (8.5-10.1) 04/29/24 05:07 Magnesium 1.8 mg/dL (2.0-2.9) L 04/29/24 05:07 Total Bilirubin 1.00 mg/dL (0.2-1.0) 04/29/24 05:07 AST 52 Units/L (15-37) H 04/29/24 05:07 ALT 37 Units/L (12-78) 04/29/24 05:07 Alkaline Phosphatase 76 Units/L (46-116) 04/29/24 05:07 Total Protein 5.3 g/dL (6.4-8.2) L 04/29/24 05:07 Albumin 2.6 g/dL (3.4-5.0) L 04/29/24 05:07 Globulin 2.7 g/dL (2.5-4.5) 04/29/24 05:07 Albumin/Globulin Ratio 1.0 Ratio (1.1-2.1) L 04/29/24 05:07 Specimen Type Catherized urine 04/26/24 21:54 Urine Color Pale yellow (YELLOW) 04/26/24 21:54 Urine Appearance Cloudy (CLEAR) 04/26/24 21:54 Urine pH 5.0 (5.0 - 8.0) 04/26/24 21:54 Ur Specific [place] 1.015 (1.000-1.030) 04/26/24 21:54 Urine Protein 2+ (NEGATIVE) 04/26/24 21:54 Urine Glucose (UA) 4+ (NEGATIVE) 04/26/24 21:54 Urine Ketones 1+ (NEGATIVE) 04/26/24 21:54 Urine Blood 4+ (NEGATIVE) 04/26/24 21:54 Urine Nitrite Positive (NEGATIVE) 04/26/24 21:54 Urine Bilirubin Negative (NEGATIVE) 04/26/24 21:54 Urine Urobilinogen Normal (NORMAL) 04/26/24 21:54 Ur Leukocyte Esterase 3+ (NEGATIVE) 04/26/24 21:54 Urine RBC 5-10 /HPF (0-3) A 04/26/24 21:54 Urine WBC Tntc /HPF (0-5) A 04/26/24 21:54 Ur Squamous Epith Cells Rare /HPF (NEGATIVE) 04/26/24 21:54 Urine Bacteria 3+ /HPF (NEGATIVE) 04/26/24 21:54 Ur Culture Indicated? Yes/culture set up 04/26/24 21:54 Stl Occult Blood (IFOB) Negative (NEGATIVE) 04/27/24 10:35 SARS-CoV-2 (PCR) Negative (NEGATIVE) 04/26/24 17:50 Influenza Type A (PCR) Negative (NEGATIVE) 04/26/24 17:50 Influenza Type B (PCR) Negative (NEGATIVE) 04/26/24 17:50 RSV (PCR) Negative (NEGATIVE) 04/26/24 17:50 Hospital Course: Patient admitted from home via the ER due to worsening mental status and p.o. intake. Patient with baseline dementia but not doing well per family. Was found to have an obstructive uropathy due to BPH with UTI. He was septic. He responded well to [facility] placement and IV antibiotics. It was decided that he would be discharged to rehab with plans for outpatient urology follow-up. He was discharged in improved, stable condition; tolerating a regular diet; on PO Cipro for 5 more days.
== END 2024-04-29 15:05 | DRG 683 ==
LOC: ER 17:37 → MED/SURG 23:18
PROVIDERS: ADMIT Family Medicine; ATTEND Family Medicine
DX: N40.1 Benign prostatic hyperplasia with lower urinary tract symptoms; E11.65 Type 2 diabetes mellitus with hyperglycemia; N39.0 Urinary tract infection, site not specified; N13.8 Other obstructive and reflux uropathy; I10 Essential (primary) hypertension; R41.89 Other symptoms and signs involving cognitive functions and awareness; E83.42 Hypomagnesemia; Z03.818 Encounter for observation for suspected exposure to other biological agents ruled out; R26.89 Other abnormalities of gait and mobility; Z16.11 Resistance to penicillins; F02.B0 Dementia in other diseases classified elsewhere, moderate, without behavioral disturbance, psychotic disturbance, mood disturbance, and anxiety; G30.1 Alzheimer's disease with late onset; E78.5 Hyperlipidemia, unspecified; N17.8 Other acute kidney failure; B96.89 Other specified bacterial agents as the cause of diseases classified elsewhere